=== PATIENT | male | born 1995 | race Caucasian/White ===

== ENCOUNTER 2016-09-09 00:23 | Emergency (ER) | payer OTHER ==
[2016-09-09 00:35] VITALS: BP 162/84; PULSE 95; TEMP 98.1; BMI 27.6
--- NOTE | 2016-09-09 01:36 | PDOC ---
History of Present Illness - General Chief Complaint: Ingrown toenail Stated Complaint: INGROWN TOENAIL Time Seen by Provider: 09/09/16 01:27 History Source: Patient Exam Limitations: No Limitations - History of Present Illness Initial Comments: 09/09/16 01:32 21yo Male patient presents to ED with ingrown toe nail x 1 yr. Patient states that during this time symptoms had gotten better. But the last couple days worsened. Denies any other complaints at this time. Occurred: reports: last week Severity: Yes: moderate Lower Extremity Pain Location: right: 1st toe Method of Injury: No: unknown, assault, burn, direct blow, fell, incised, motor vehicle accident, sports injury, twisted, other Modifying Factors: improves with: None Extremity Pain Location - Extremity Pain Location Extremity Pain Locations: right: 1st toe Past History - Travel Traveled outside of the country in the last 30 days: No Close contact w/someone who was outside of country & ill: No - Past Medical History Allergies/Adverse Reactions: Allergies Allergy/AdvReac Type Severity Reaction Status Date / Time shellfish derived Allergy Verified 09/09/16 00:35 Home Medications: Ambulatory Orders Cephalexin Monohydrate [Keflex -] 500 mg PO BID #20 capsule 09/09/16 Ibuprofen [Motrin -] 600 mg PO Q6H PRN #20 tablet 09/09/16 Asthma: Yes - Psycho/Social/Smoking Cessation Hx Suicidal Ideation: No Smoking History: Unknown if ever smoked Information on smoking cessation initiated: No Hx Alcohol Use: No Drug/Substance Use Hx: No Review of Systems - Review of Systems Able to Perform ROS?: Yes Is the patient limited Andorran proficient: No Constitutional: No: Fever Musculoskeletal: Yes: Other (Rt great toe pain.) All Other Systems: Reviewed and Negative *Physical Exam - Vital Signs Last Vital Signs Temp Pulse Resp BP Pulse Ox 98.1 F 95 H 18 162/84 98 09/09/16 00:32 09/09/16 00:32 09/09/16 00:32 09/09/16 00:32 09/09/16 00:32 - Physical Exam General Appearance: Yes: Nourished, Appropriately Dressed. No: Apparent Distress, Mild Distress, Moderate Distress Respiratory/Chest: positive: Lungs Clear, Normal Breath Sounds. negative: Chest Tender, Respiratory Distress, Accessory Muscle Use, Labored Respiration, Rapid RR Cardiovascular: positive: Regular Rhythm, Regular Rate Musculoskeletal: positive: Normal Inspection. negative: CVA Tenderness, Vertebral Tenderness Extremity: positive: Normal Capillary Refill, Normal Inspection, Normal Range of Motion, Swelling (Rt great toe, active drainage from site. Mild erythema noted.) Integumentary: positive: Normal Color, Dry, Warm Neurologic: positive: practice advisor II-XII NML intact, Fully Oriented, Alert, Normal Mood/ Affect, Normal Response, Motor Strength 5/5 *DC/Admit/Observation/Transfer Diagnosis at time of Disposition: Ingrown left big toenail - Discharge Dispostion Disposition: HOME Condition at time of disposition: Stable Admit: No - Prescriptions Prescriptions: Cephalexin Monohydrate [Keflex -] 500 mg PO BID #20 capsule Ibuprofen [Motrin -] 600 mg PO Q6H PRN #20 tablet PRN Reason: Mild Pain - Referrals Referrals: Charlie Barnhart MD [Primary Care Provider] - Ronnie Pierce [Staff Physician] - - Patient Instructions Printed Discharge Instructions: DI for Ingrown Toenail Removal, DI for Ingrown Toenail Additional Instructions: FOLLOW UP WITH DR. PIERCE (ORCHARD WORKER) THIS WEEK. CALL TO SCHEDULE APPOINTMENT. TAKE MEDICATIONS PRESCRIBED. SOAK AFFECTED FOOT IN WARM WATER TWICE A DAY, DRY THOROUGHLY AND APPLY THIN LAYER OF BACITRACIN OR NEOSPORIN , THEN COVER WITH BANDAGE. AVOID PROLONGED STANDING. DO NOT WEAR TIGHT FITTING SHOES, AND DO NOT TRIM YOU TOE NAILS. Print Language: DANISH - Post Discharge Activity Work/School Note: Back to Work
[2016-09-09] MEDS ORDERED: IBUPROFEN 600 MG TABLET (FP) PO ONE ×2 (01:44→01:53)
[2016-09-09] MEDS ORDERED: CEPHALEXIN MONOHYDRATE 500 MG CAPSULE (UD) PO ONE (01:44)
[2016-09-09] MEDS ORDERED: CEPHALEXIN MONOHYDRATE 250 MG CAPSULE (FP) ONE (01:54)
== END 2016-09-09 02:00 | disposition home or self-care (01) ==
LOC: JER 00:23
DX: L60.0 Ingrowing nail (principal)
CPT/HCPCS: 99281-25

== ENCOUNTER 2016-10-09 20:52 | Emergency (ER) | payer OTHER ==
[2016-10-09 21:12] VITALS: BP 139/80; PULSE 77; TEMP 97.8; BMI 28.6
[2016-10-09] MEDS ORDERED: OXYCODONE/APAP 5/325MG COMBO TABLET PO ONE (23:16)
[2016-10-09] MEDS ORDERED: OXYCODONE/APAP 5/325MG COMBO TABLET ONE (23:53)
[2016-10-09 23:58] LABS: BASOPHIL 0.5 % (0-2.0); EOSINOPHIL 0.6 % (0-4.5); MCH 30.6 pg (25.7-33.7); MCHC 34.1 g/dl (32.0-35.9); MEAN CELL VOLUME 89.8 fl (80-96); NEUTROPHILS 67.4 % (42.8-82.8); PLATELET COUNT 192 K/MM3 (134-434); WHITE BLOOD COUNT 8.2 K/mm3 (4.0-10.0)
[2016-10-10 00:03] LABS: URINE APPEARANCE CLEAR; URINE BILIRUBIN NEGATIVE (NEGATIVE); URINE BLOOD NEGATIVE (NEGATIVE); URINE COLOR YELLOW; URINE GLUCOSE (UA) NEGATIVE (NEGATIVE); URINE KETONE NEGATIVE (NEGATIVE); URINE LEUK ESTERASE NEGATIVE (NEGATIVE); URINE NITRITE NEGATIVE (NEGATIVE); URINE PROTEIN NEGATIVE (NEGATIVE); URINE UROBILINOGEN NEGATIVE E.U./dl (0.2-1.0)
--- NOTE | 2016-10-10 00:15 | PDOC ---
History of Present Illness - General Chief Complaint: Pain, Acute Stated Complaint: PAIN Time Seen by Provider: 10/09/16 22:24 History Source: Patient Exam Limitations: No Limitations - History of Present Illness Travel History: No Initial Comments: 10/09/16 23:57 21yo Male patient presents to ED c/o LLQ abd pain which began today. Patient states while working, he was lifting and moving heavy items. He states every time me moves: Timing/Duration: reports: constant, getting worse Quality: reports: severe Abdominal Pain Onset Location: reports: LLQ Pain Radiation: reports: no radiation Activities at Onset: reports: exertion Treatment Prior to Arrive: improves with: analgesics Aggravating Factors: worse with: None, Defecation, Eating, Emotional upset, Exertion, [place], Movement, Voiding, Change in position Alleviating Factors: worse with: None, Belching, Shallow Breathing, Defecation, Eating, Holding Breath, Passing Gas, Change in Position, Rest, Voiding, Vomiting Past History - Travel Traveled outside of the country in the last 30 days: No Close contact w/someone who was outside of country & ill: No - Past Medical History Allergies/Adverse Reactions: Allergies Allergy/AdvReac Type Severity Reaction Status Date / Time shellfish derived Allergy Verified 10/09/16 21:09 Home Medications: Ambulatory Orders Ibuprofen [Motrin -] 600 mg PO Q6H PRN #30 tablet 10/10/16 Ondansetron [Zofran Odt -] 4 mg SL Q8H PRN #20 od.tablet 10/10/16 Oxycodone HCl/Acetaminophen [Percocet 5-325 mg Tablet] 1 tab PO Q6H PRN #20 tablet MDD 4 tabs 10/10/16 Asthma: Yes - Immunization History Immunization Up to Date: Yes - Psycho/Social/Smoking Cessation Hx Suicidal Ideation: No Smoking History: Never smoked Information on smoking cessation initiated: No Hx Alcohol Use: No Drug/Substance Use Hx: No Abd/GI Specific PMHX - Complaint Specific PMHX Colitis: No Diverticulitis: No Gall Bladder Disease: No GERD: No Hepatitis: No Irritable Bowel Synd (IBS): No Pancreatitis: No GI Ulcer Disease: No Review of Systems - Review of Systems Able to Perform ROS?: Yes Is the patient limited Irish proficient: No Constitutional: No: Chills, Fever Respiratory: No: Cough Cardiac (ROS): No: Chest Pain, Lightheadedness, Palpitations, Syncope, Chest Tightness ABD/GI: Yes: Other (LLQ Abd Pain). No: Abdominal Distended, Blood Streaked Bowels, Constipated, Diarrhea, Difficulty Swallowing, Nausea, Poor Appetite, Poor Fluid Intake, Rectal Bleeding, Vomiting : No: Dysuria, Flank Pain, Hematuria, Pain, Urgency, Testicular Mass, Testicular Swelling Musculoskeletal: No: Back Pain All Other Systems: Reviewed and Negative *Physical Exam - Vital Signs Last Vital Signs Temp Pulse Resp BP Pulse Ox 97.8 F 77 20 139/80 98 10/09/16 21:09 10/09/16 21:09 10/09/16 21:09 10/09/16 21:10/09/16 21:09 - Physical Exam General Appearance: Yes: Nourished, Appropriately Dressed, Mild Distress. No: Apparent Distress, Moderate Distress, Severe Distress Neck: positive: Trachea midline, Normal Thyroid, Supple. negative: Stridor, Lymphadenopathy (R), Lymphadenopathy (L) Respiratory/Chest: positive: Lungs Clear, Normal Breath Sounds. negative: Respiratory Distress, Accessory Muscle Use, Labored Respiration, Rapid RR Cardiovascular: positive: Regular Rhythm, Regular Rate. negative: Edema, JVD, Murmur Gastrointestinal/Abdominal: positive: Normal Bowel Sounds, Soft, Guarding, Rebound, Tenderness (LLQ). negative: Distended Musculoskeletal: positive: Normal Inspection. negative: CVA Tenderness Extremity: positive: Normal Capillary Refill, Normal Inspection, Normal Range of Motion. negative: Swelling, Calf Tenderness Integumentary: positive: Normal Color, Dry, Warm. negative: Rash, Swelling Neurologic: positive: flight operations dispatch clerk II-XII NML intact, Fully Oriented, Alert, Normal Mood/ Affect, Normal Response, Motor Strength 5/5 ED Treatment Course - LABORATORY CBC & Chemistry Diagram: 10/09/16 23:45 10/09/16 23:45 - RADIOLOGY Radiology Studies Ordered: Category Date Time Status ABDOMEN & PELVIS CT W/O CONTR [CT] Stat CT Scan 10/09/16 23:16 Ordered - Medications Given in the ED: ED Medications Discontinued Medications Generic Name Dose Route Start Last Admin Trade Name Freq PRN Reason Stop Dose Admin Oxycodone/Acetaminophen 1 combo 10/09/16 23:16 10/09/16 23:54 Percocet 5/325 - PO 10/09/16 23:17 1 combo ONCE ONE Administration *DC/Admit/Observation/Transfer Diagnosis at time of Disposition: Abdominal pain Qualifiers: Abdominal location: left lower quadrant Qualified Code(s): R10.32 - Left lower quadrant pain - Discharge Dispostion Disposition: HOME Condition at time of disposition: Stable Admit: No - Prescriptions Prescriptions: Ibuprofen [Motrin -] 600 mg PO Q6H PRN #30 tablet PRN Reason: Mild Pain Oxycodone HCl/Acetaminophen [Percocet 5-325 mg Tablet] 1 tab PO Q6H PRN #20 tablet MDD 4 tabs PRN Reason: Severe Pain Ondansetron [Zofran Odt -] 4 mg SL Q8H PRN #20 od.tablet PRN Reason: Nausea - Referrals Referrals: Jason Heredia MD [Staff Physician] - - Patient Instructions Printed Discharge Instructions: DI for Abdominal Pain-Adult Additional Instructions: FOLLOW UP WITH DR. HEREDIA (GASTROENTEROLOGY). CALL TO SCHEDULE EARLY APPOINTMENT. TAKE MEDICATIONS PRESCRIBED. DO NOT DRIVE, DRINK ALCOHOL, OR OPERATE HEAVY MACHINERY WHILE TAKING PERCOCET. USE MOTRIN FOR ANTIINFLAMMATORY PROPERTIES. RETURN IF SYMPTOMS WORSEN OR ANY CONCERNS FOR FURTHER EVALUATION. Print Language: UKRAINIAN - Post Discharge Activity Work/School Note: Back to Work
[2016-10-10 01:04] LABS: ALBUMIN 4.2 g/dl (3.4-5.0); ALK PHOS 76 U/L (45-117); ANION GAP 10 (8-16); BILIRUBIN,TOTAL 0.7 mg/dL (0.2-1.0); CALCIUM 8.9 mg/dL (8.5-10.1); CO2 29 mmol/L (21-32); CREATININE 0.9 mg/dL (0.7-1.3); GLUCOSE,RANDOM 107 mg/dL (74-106); SGOT/AST 16 U/L (15-37); SGPT/ALT 25 U/L (12-78); TOT PROT 7.6 g/dl (6.4-8.2)
[2016-10-10] MEDS ORDERED: KETOROLAC TROMETHAMINE 30 MG/1 ML VIAL IVPUSH ONE (01:54)
[2016-10-10] MEDS ORDERED: OXYCODONE/APAP 5/325MG COMBO TABLET PO ONE (01:54)
[2016-10-10] MEDS ORDERED: ONDANSETRON 8 MG TABLET (FP) PO ONE (02:06)
[2016-10-10] MEDS ORDERED: OXYCODONE/APAP 5/325MG COMBO TABLET ONE (02:11)
== END 2016-10-10 02:13 | disposition home or self-care (01) ==
LOC: JER 20:52
DX: R10.32 Left lower quadrant pain (principal); J45.909 Unspecified asthma, uncomplicated
CPT/HCPCS: 36415; 74176-TC; 80053; 81003; 85025; 99282-25

== ENCOUNTER 2018-05-14 04:31 | Emergency (ER) | payer OTHER ==
[2018-05-14 05:04] VITALS: BP 111/74; PULSE 85; TEMP 97.8; BMI 34.4
--- NOTE | 2018-05-14 05:17 | PDOC ---
History of Present Illness - General Chief Complaint: Eye Problem Stated Complaint: R EYE SWELLING Time Seen by Provider: 05/14/18 05:02 History Source: Patient Exam Limitations: No Limitations - History of Present Illness Initial Comments: 05/14/18 05:12 HISTORY OF PRESENT ILLNESS: This 43-year-old male with past medical history of asthma presents emergency Department with atraumatic swelling to his right lower eyelid. Patient states over the past couple of months, he's had 4-5 styes is concerned that he has recurrent swollen. Denies any fevers, chills, blurry vision, discharge or drainage. No recent travel or sick contacts. PAST MEDICAL HISTORY: Asthma SURGICAL HISTORY: Denies ALLERGIES: shellfish REVIEW OF SYSTEMS General/Constitutional: Denies fever or chills. Denies weakness, weight change. HEENT: Denies change in vision. Denies ear pain or discharge. Denies sore throat. Right eye swelling. Cardiovascular: Denies chest pain or shortness of breath. Respiratory: Denies cough, wheezing, or hemoptysis. Gastrointestinal: Denies nausea, vomiting, diarrhea or constipation. Denies rectal bleeding. Genitourinary: Denies dysuria, frequency, or change in urination. Musculoskeletal: Denies joint or muscle swelling or pain. Denies neck or back pain. Skin and breasts: Denies rash or easy bruising. Neurologic: Denies headache, vertigo, loss of consciousness, or loss of sensation. Psychiatric: Denies depression or anxiety. Endocrine: Denies increased thirst. Denies abnormal weight change. Hematologic/Lymphatic: Denies anemia, easy bleeding, or history of blood clots. Allergic/Immunologic: Denies hives or skin allergy. Denies latex allergy. PHYSICAL EXAM General Appearance: Well-appearing, appropriately dressed. No apparent distress , no intoxication. HEENT: EOMI, PERRLA, normal ENT inspection, normal voice, TMs normal, pharynx normal. No conjunctival pallor. No photophobia, scleral icterus. Erythematous area to the medial aspect of the right lower eyelid. Neck: Supple. Trachea midline. No tenderness, rigidity, carotid bruit, stridor , lymphadenopathy, or thyromegaly. Respiratory/Chest: Lungs CTAB. No shortness of breath, chest tenderness, respiratory distress, accessory muscle use. No crackles, rales, rhonchi, stridor , wheezing, dullness Cardiovascular: RRR. S1, S2. No JVD, murmur, bradycardia, tachycardia. Vascular Pulses: Dorsalis-Pedis (R): 2+, Dorsalis-Pedis (L): 2+ Gastrointestinal/Abdominal: Normal bowel sounds. Abdomen soft, non-distended. No tenderness or rebound tenderness. No organomegaly, pulsatile mass, guarding, hernia, hepatomegaly, splenomegaly. Lymphatic: No adenopathy, tenderness. Musculoskeletal/Extremities: Normal inspection. FROM of all extremities, normal capillary refill. Pelvis Stable. No CVA tenderness. No tenderness to extremities, pedal edema, swelling, erythema or deformity. Integumentary: Appropriate color, dry, warm. No cyanosis, erythema, jaundice or rash Neurologic: instruction dean II-XII intact. Fully oriented, alert. Appropriate mood/affect. Motor strength 5/5. No appreciable EOM palsy, facial droop or sensory deficit. Past History - Past Medical History Allergies/Adverse Reactions: Allergies Allergy/AdvReac Type Severity Reaction Status Date / Time shellfish derived Allergy Verified 05/14/18 05:02 Home Medications: Ambulatory Orders Ibuprofen [Motrin -] 600 mg PO Q6H PRN #30 tablet 10/10/16 Ondansetron [Zofran Odt -] 4 mg SL Q8H PRN #20 od.tablet 10/10/16 Oxycodone HCl/Acetaminophen [Percocet 5-325 mg Tablet] 1 tab PO Q6H PRN #20 tablet MDD 4 tabs 10/10/16 Albuterol Sulfate Inhaler - [Ventolin HFA Inhaler -] 1 - 2 inh PO Q4H #1 inhaler 05/14/18 Asthma: Yes - Immunization History Immunization Up to Date: Yes - Suicide/Smoking/Psychosocial Hx Smoking History: Current some day smoker Number of Cigarettes Smoked Daily: 3 Information on smoking cessation initiated: No Hx Alcohol Use: No Drug/Substance Use Hx: No *Physical Exam - Vital Signs Last Vital Signs Temp Pulse Resp BP Pulse Ox 97.8 F 85 20 111/74 99 05/14/18 05:02 05/14/18 05:02 05/14/18 05:02 05/14/18 05:02 05/14/18 05:02 Medical Decision Making - Medical Decision Making 05/14/18 05:15 A/P: 23-year-old man with hordeleum to the right eye Discharge home with instructions to apply warm compresses. Patient is requesting a refill of his albuterol MDI. I discussed the physical exam findings, ancillary test results and final diagnoses with the patient. I answered all of the patient's questions. The patient was satisfied with the care received and felt comfortable with the discharge plan and treatment plan. The patient will call their primary care physician within 24 hours to arrange follow-up and will return to the Emergency Department with any new, persistent or worsening symptoms. *DC/Admit/Observation/Transfer Diagnosis at time of Disposition: Hordeolum externum (stye) Qualifiers: Laterality: right Eyelid: lower Qualified Code(s): H00.012 - Hordeolum externum right lower eyelid - Discharge Dispostion Disposition: HOME Condition at time of disposition: Stable Decision to Admit order: No - Prescriptions Prescriptions: Albuterol Sulfate Inhaler - [Ventolin HFA Inhaler -] 1 - 2 inh PO Q4H #1 inhaler - Referrals - Patient Instructions Printed Discharge Instructions: DI for Hordeolum - Post Discharge Activity Forms/Work/School Notes: Back to School
== END 2018-05-14 05:49 | disposition home or self-care (01) ==
LOC: JER 04:31
DX: H00.012 Hordeolum externum right lower eyelid (principal); F17.210 Nicotine dependence, cigarettes, uncomplicated; J45.909 Unspecified asthma, uncomplicated
CPT/HCPCS: 99281-25

== ENCOUNTER 2018-09-20 04:27 | Emergency (ER) | payer OTHER ==
[2018-09-20] MEDS ORDERED: MAG HYDROX/AL HYDROX/SIMETH 30 ML UNIT-DOSE CUP PO ONE (04:44)
[2018-09-20] MEDS ORDERED: ONDANSETRON *ODT* 4 MG TABLET SL ONE (04:44)
[2018-09-20] MEDS ORDERED: ONDANSETRON *ODT* 4 MG TABLET ONE (05:04)
[2018-09-20] MEDS ORDERED: MAG HYDROX/AL HYDROX/SIMETH 30 ML UNIT-DOSE CUP ONE (05:04)
[2018-09-20 05:18] VITALS: BP 140/72; PULSE 82; TEMP 97.8; BMI 32.1
--- NOTE | 2018-09-20 06:04 | PDOC ---
History of Present Illness - General Chief Complaint: Pain Stated Complaint: HEADACHE/ABD PAIN Time Seen by Provider: 09/20/18 04:44 - History of Present Illness Initial Comments: 09/20/18 06:04 23-year-old male complaining of nausea vomiting and epigastric abdominal pain after eating pizza last night. Denies fevers/chills movement denies lower abdominal pain, urinary symptoms. patient also reports that he felt and mass to right lower quadrant area with sneezing, this has happened many time before and patient reports that he had to massage the abdomen for swelling to go down. patient has no palpable mass or pain to lower quadrant at this time/. 09/20/18 06:55 Past History - Past Medical History Allergies/Adverse Reactions: Allergies Allergy/AdvReac Type Severity Reaction Status Date / Time shellfish derived Allergy Verified 09/20/18 04:50 Home Medications: Ambulatory Orders Albuterol Sulfate Inhaler - [Ventolin HFA Inhaler -] 1 - 2 inh PO Q4H #1 inhaler 05/14/18 Mag Hydrox/Al Hydrox/Simeth [Mylanta Suspension -] 30 ml PO Q6H PRN #1 bottle Asthma: Yes COPD: No - Immunization History Immunization Up to Date: Yes - Suicide/Smoking/Psychosocial Hx Smoking History: Smoker current status UNK Have you smoked in the past 12 months: No Number of Cigarettes Smoked Daily: 3 Information on smoking cessation initiated: No Hx Alcohol Use: No Drug/Substance Use Hx: No Substance Use Type: None Abd/GI Specific PMHX - Complaint Specific PMHX Colitis: No Diverticulitis: No Gall Bladder Disease: No GERD: No Hepatitis: No Irritable Bowel Synd (IBS): No Pancreatitis: No GI Ulcer Disease: No Review of Systems - Review of Systems Able to Perform ROS?: Yes Is the patient limited Malay proficient: No Constitutional: No: Symptoms Reported, See HPI, Chills, Diaphoresis, Fever, Loss of Appetite, Malaise, Night Sweats, Weakness, Weight Stable, Unintentional Wgt. Loss, Unexplained wgt Loss, Other ABD/GI: Yes: Nausea, Vomiting, Abdominal cramping (epigastric) : No: Symptoms Reported, See HPI, Burning, Dysuria, Discharge, Frequency, Flank Pain, Hematuria, Incontinence, Pain, Urgency, Testicular Mass, Testicular Swelling, Lesions, Testicular Pain, Other Musculoskeletal: No: Symptoms Reported, See HPI, Back Pain, Gout, Joint Pain, Joint Swelling, Muscle Pain, Muscle Weakness, Neck Pain, Joint Stiffness, Other *Physical Exam - Vital Signs Last Vital Signs Temp Pulse Resp BP Pulse Ox 97.8 F 82 16 140/72 98 09/20/18 04:27 09/20/18 04:27 09/20/18 04:27 09/20/18 04:27 09/20/18 04:27 - Physical Exam General Appearance: Yes: Appropriately Dressed Respiratory/Chest: positive: Lungs Clear, Normal Breath Sounds Cardiovascular: positive: Regular Rhythm, Regular Rate Gastrointestinal/Abdominal: positive: Normal Bowel Sounds, Tender (epigastric pain), Soft Extremity: positive: Normal Capillary Refill, Normal Inspection, Normal Range of Motion Integumentary: positive: Normal Color, Dry, Warm Neurologic: positive: Fully Oriented, Alert, Normal Mood/Affect Moderate Sedation - Procedure Monitoring Vital Signs: Procedure Monitoring Vital Signs Temperature 97.8 F 09/20/18 04:27 Pulse Rate 82 09/20/18 04:27 Respiratory Rate 16 09/20/18 04:27 Blood Pressure 140/72 09/20/18 04:27 O2 Sat by Pulse Oximetry (%) 98 09/20/18 04:27 ED Treatment Course - Medications Given in the ED: ED Medications Discontinued Medications Generic Name Dose Route Start Last Admin Trade Name Freq PRN Reason Stop Dose Admin Al Hydroxide/Mg Hydroxide 30 ml 09/20/18 04:44 09/20/18 05:07 Mylanta Oral Suspension - PO 09/20/18 04:45 30 ml ONCE ONE Administration Ondansetron HCl 4 mg 09/20/18 04:44 09/20/18 05:09 Zofran Odt - SL 09/20/18 04:45 4 mg ONCE ONE Administration Progress Note - Progress Note Progress Note: gastroenteritis P: zofran maalox po challenge Medical Decision Making - Medical Decision Making 09/20/18 06:08 tolerated PO water. no vomiting. reports feeling better. no abdominal pain will d/ c home *DC/Admit/Observation/Transfer Diagnosis at time of Disposition: Gastroenteritis - Discharge Dispostion Disposition: HOME Condition at time of disposition: Fair - Prescriptions Prescriptions: Mag Hydrox/Al Hydrox/Simeth [Mylanta Suspension -] 30 ml PO Q6H PRN #1 bottle PRN Reason: Dyspepsia - Referrals Referrals: Yair Ray MD [Staff Physician] - - Patient Instructions Printed Discharge Instructions: DI for Viral Gastroenteritis -- Adult Additional Instructions: Drink plenty of fluids. You may drink Gatorade as well. Start a brat diet (bananas, rice, apples, toast) Follow-up with your doctor as soon as possible. Additional Instructions: * Please call your personal physician to report your Emergency Department visit and to report your progress, if any. * If there is no improvement in symptoms in 2 days call your physician. * Return to the Emergency Department for any worsening symptoms. - Post Discharge Activity Forms/Work/School Notes: Back to Work
== END 2018-09-20 06:30 | disposition home or self-care (01) ==
LOC: JER 04:27
DX: K52.9 Noninfective gastroenteritis and colitis, unspecified (principal)
CPT/HCPCS: 99282-25; Q0162

== ENCOUNTER 2018-10-02 23:31 | Emergency (ER) | payer OTHER ==
[2018-10-02 23:42] VITALS: BP 132/90; PULSE 70; TEMP 97.9; BMI 32.1
--- NOTE | 2018-10-03 01:03 | PDOC ---
History of Present Illness - General Chief Complaint: Pain Stated Complaint: ABD PAIN Time Seen by Provider: 10/03/18 00:18 History Source: Patient - History of Present Illness Initial Comments: 10/03/18 00:55 Patient is a 23 y/o with no medical history who presents with abdominal pain and increased bowel movements. He reports for the last two weeks he has been having abdominal cramping and needing to go to the bathroom right after. Sometimes it is solid stool and sometimes it is diarrhea. He reports that his son has also been using the bathroom frequently. Patient reports he has also been very nauseous and vomiting frequently. He can drink water okay, but when he eats something solid he feels like it sticks in his throat. He reports early satiety. He states even though he has been eating less he feels like he is gaining more weight. Reports he has an appointment with GI but the appointment has not happened yet. No other complaints. Past History - Past Medical History Allergies/Adverse Reactions: Allergies Allergy/AdvReac Type Severity Reaction Status Date / Time shellfish derived Allergy Verified 10/02/18 23:37 Home Medications: Ambulatory Orders Albuterol Sulfate Inhaler - [Ventolin HFA Inhaler -] 1 - 2 inh PO Q4H #1 inhaler 05/14/18 Mag Hydrox/Al Hydrox/Simeth [Mylanta Suspension -] 30 ml PO Q6H PRN #1 bottle Asthma: Yes COPD: No - Immunization History Immunization Up to Date: Yes - Suicide/Smoking/Psychosocial Hx Smoking History: Never smoked Have you smoked in the past 12 months: No Number of Cigarettes Smoked Daily: 3 Information on smoking cessation initiated: No Hx Alcohol Use: No Drug/Substance Use Hx: No Substance Use Type: None Review of Systems - Review of Systems Constitutional: No: Chills, Fever HEENTM: No: Eye Pain Respiratory: No: Cough, Shortness of Breath Cardiac (ROS): No: Chest Pain ABD/GI: Yes: Diarrhea, Difficulty Swallowing, Nausea, Vomiting *Physical Exam - Vital Signs Last Vital Signs Temp Pulse Resp BP Pulse Ox 97.9 F 70 16 132/90 100 10/02/18 23:34 10/02/18 23:34 10/02/18 23:34 10/02/18 23:34 10/02/18 23:34 - Physical Exam Comments: 10/03/18 01:05 GENERAL: A&O x3 Neck: mild fullness around thyroid HEART: RRR, no murmurs, rubs, or gallops LUNGS: CTAL B/L ABD: diffuse tenderness, normoactive bowel sounds GENITAL: no swelling or tenderness on testicles, no inguinal hernias felt SKIN: no rashes or ulcers noted Moderate Sedation - Procedure Monitoring Vital Signs: Procedure Monitoring Vital Signs Temperature 97.9 F 10/02/18 23:34 Pulse Rate 70 10/02/18 23:34 Respiratory Rate 16 10/02/18 23:34 Blood Pressure 132/90 10/02/18 23:34 O2 Sat by Pulse Oximetry (%) 100 10/02/18 23:34 ED Treatment Course - LABORATORY CBC & Chemistry Diagram: 10/03/18 01:09 10/03/18 01:09 - RADIOLOGY Radiology Studies Ordered: Category Date Time Status ABDOMEN & PELVIS CT WITH CONTR [CT] Stat CT Scan 10/03/18 00:53 Ordered Medical Decision Making - Medical Decision Making 10/03/18 01:58 f/u CT abd, f/u labs *DC/Admit/Observation/Transfer Diagnosis at time of Disposition: Abdominal pain - Referrals - Patient Instructions - Post Discharge Activity
[2018-10-03 01:41] LABS: HEMATOCRIT 46.6 % (35.4-49); HEMOGLOBIN 16.4 GM/dL (11.7-16.9); MCH 31.9 pg (25.7-33.7); MCHC 35.2 g/dl (32.0-35.9); MEAN CELL VOLUME 90.8 fl (80-96); MEAN PLT VOLUME 9.8 fl (7.5-11.1); PLATELET COUNT 243 K/MM3 (134-434); RBC 5.13 M/mm3 (4.00-5.60); RDW 12.3 % (11.9-15.9); WHITE BLOOD COUNT 8.2 K/mm3 (4.0-10.0)
[2018-10-03 02:09] LABS: ALBUMIN 4.1 g/dl (3.4-5.0); ALK PHOS 112 U/L (45-117); ANION GAP 5 MMOL/L (8-16); BILIRUBIN,TOTAL 0.6 mg/dL (0.2-1); BLOOD UREA NITROGEN 15 mg/dL (7-18); CALCIUM 9.3 mg/dL (8.5-10.1); CHLORIDE 107 mmol/L (98-107); CO2 29 mmol/L (21-32); CREATININE 0.9 mg/dL (0.55-1.3); GLUCOSE,RANDOM 101 mg/dL (74-106); POTASSIUM 4.6 mmol/L (3.5-5.1); SGOT/AST 30 U/L (15-37); SGPT/ALT 35 U/L (13-61); SODIUM 141 mmol/L (136-145); TOT PROT 7.7 g/dl (6.4-8.2)
[2018-10-03] MEDS ORDERED: ACETAMINOPHEN 1000 MG/100 ML VIAL (NON FORMULARY) IVPB ONE (02:18)
--- NOTE | 2018-10-03 02:19 | PDOC ---
*Physical Exam - Vital Signs Last Vital Signs Temp Pulse Resp BP Pulse Ox 97.9 F 70 16 132/90 100 10/02/18 23:34 10/02/18 23:34 10/02/18 23:34 10/02/18 23:34 10/02/18 23:34 - Physical Exam Comments: 10/03/18 16:29 23 yo M with no past medical history presents to the emergency department with increasing abdominal cramping with change in bowel habits. Per the patient, he has had changing of bowel patterns of intermittent diarrhea and constipation. His pain is diffusely located throughout the abdomen. The patient was signed out to me by Dr. Tyson. At the time of sign out, the patient's labs were within normal limits with a pending abdomen pelvis CT. ED Treatment Course - LABORATORY CBC & Chemistry Diagram: 10/03/18 01:09 10/03/18 01:09 - ADDITIONAL ORDERS Additional order review: Laboratory Results 10/03/18 01:09 Sodium 141 Potassium 4.6 Chloride 107 Carbon Dioxide 29 Anion Gap 5 L BUN 15 Creatinine 0.9 Creat Clearance w eGFR 104.57 Random Glucose 101 Calcium 9.3 Total Bilirubin 0.6 AST 30 ALT 35 Alkaline Phosphatase 112 Total Protein 7.7 Albumin 4.1 TSH 1.81 10/03/18 01:09 RBC 5.13 MCV 90.8 MCHC 35.2 RDW 12.3 MPV 9.8 Medical Decision Making - Medical Decision Making 10/03/18 16:33 CT abdomen and pelvis was within normal limits without acute intra-abdominal pathologies. The patient was given a copy of his report. He was given 1 gram of tylenol for pain relief. the patient was given a referral to a joint supervisor for follow up care. He understands the need for follow up and agrees to it. Patient at the time of discharge was well appearing and pain free. He was able to ambulate on his own volition. Dispo: Discharge *DC/Admit/Observation/Transfer Diagnosis at time of Disposition: Abdominal pain Qualifiers: Abdominal location: unspecified location Qualified Code(s): R10.9 - Unspecified abdominal pain - Discharge Dispostion Disposition: HOME Decision to Admit order: No - Referrals Referrals: [facility] [place] [facility] [place] [Provider Group] Jared Davis DO [Staff Physician] - - Patient Instructions Printed Discharge Instructions: DI for Viral Gastroenteritis -- Adult, DI for Irritable Bowel Syndrome Additional Instructions: you were seen in the emergency department for your abdominal cramping. your imaging was negative and your labs were within normal limits. please follow up with your primary medical doctor in 1 week for follow up care and management. in addition, a joint supervisor was referred to you. please follow up with them in 1 week after discharge. please return to the emergency department if you have worsening symptoms or new concerning symptoms such as fevers, chills, blood in the stool, intractable vomiting. thank you. - Post Discharge Activity Forms/Work/School Notes: Back to Work
[2018-10-03] MEDS ORDERED: ACETAMINOPHEN INJECTION 100 ML IVPB ONE (02:22)
[2018-10-03] MEDS ORDERED: ONDANSETRON 4 MG/2 ML VIAL ONE (02:31)
--- NOTE | 2018-10-03 02:32 | PDOC ---
Attending Attestation - Resident Resident Name: Kelsy Tyson - ED Attending Attestation I have performed the following: I have examined & evaluated the patient, The case was reviewed & discussed with the resident, I agree w/resident's findings & plan, Exceptions are as noted - HPI HPI: 10/03/18 02:21 23 M with no PMH presents to ED with intermittent abdominal pain x 2 weeks. Pt endorses frequent urge to defecate but denies diarrhea. Denies bloody or dark stools. Pt also endorses nausea with occasional episodes of vomiting after eating. Deneis F/C. Denies any recent abx use. Denies CP/SOB. Denies dysuria. Denies any abdominal surgeries. Denies scrotal pain. Denies dysuria or flank pain. - Physicial Exam PE: 10/03/18 02:32 GENERAL: Awake, alert, and fully oriented, in no acute distress. HEAD: No signs of trauma EYES: PERRLA, EOMI, sclera anicteric, conjunctiva clear ENT: Auricles normal inspection, hearing grossly normal, nares patent, oropharynx clear without exudates. Moist mucosa NECK: Nontender, no stepoffs, Normal ROM, supple, no lymphadenopathy, JVD, or masses LUNGS: Breath sounds equal, clear to auscultation bilaterally. No wheezes, and no crackles HEART: Regular rate and rhythm, normal S1 and S2, no murmurs, rubs or gallops ABDOMEN: + diffuse lower abdominal tenderness, normoactive bowel sounds. No guarding, no rebound. No masses EXTREMITIES: Normal range of motion, no edema. No clubbing or cyanosis. No cords, erythema, or tenderness NEUROLOGICAL: Cranial nerves II through XII intact. 5/5 strength and sensation in all extremities, Normal speech, normal gait, normal cerebellar function SKIN: Warm, Dry, normal turgor, no rashes or lesions noted. : Normal scrotum, no tenderness, no masses, normal cremasteric reflex - Medical Decision Making 10/03/18 02:32 23 M with 2 weeks of intermittent lower abdominal pain with frequent bowel movements. ?IBS. Will r/o colitis vs appy with CT scan. No evidence of testicular torsion or other scrotal pathology on exam. - Labs - CTAP 10/03/18 03:[address] unremarkable Pt is well appearing, with normal vitals. Clinically stable for DC at this time. I discussed the physical exam findings, ancillary test results and final diagnoses with the patient. I answered all of the patient's questions. The patient was satisfied with the care received and felt comfortable with the discharge plan and treatment plan. The patient agrees to follow up with the primary care physician within 24-72 hours.
== END 2018-10-03 03:36 | disposition home or self-care (01) ==
LOC: JER 23:31
PROC: 3E033NZ Introduction of Analgesics, Hypnotics, Sedatives into Peripheral Vein, Percutaneous Approach (ICD-10-PCS; principal; 2018-10-02)
DX: R10.9 Unspecified abdominal pain (principal)
CPT/HCPCS: 36415; 74177-TC; 80053; 84443; 85027; 96374; 99282-25; J0131

== ENCOUNTER 2022-06-08 19:24 | Emergency (ER) | payer OTHER ==
[2022-06-08 19:39] VITALS: BP 119/72; PULSE 90; RESP 20; TEMP 98.1; BMI 25.0
[2022-06-08] MEDS ORDERED: IBUPROFEN 400 MG TABLET (FP) PO ONE ×2 (23:18→23:32)
[2022-06-08 23:32] LABS: URINE APPEARANCE CLEAR; URINE BILIRUBIN NEGATIVE (NEGATIVE); URINE COLOR DK YELLOW; URINE GLUCOSE (UA) NEGATIVE (NEGATIVE); URINE KETONE 2+ (NEGATIVE); URINE LEUK ESTERASE NEGATIVE (NEGATIVE); URINE NITRITE NEGATIVE (NEGATIVE); URINE PROTEIN TRACE (NEGATIVE)
== END 2022-06-08 23:52 | disposition home or self-care (01) ==
LOC: JER 19:24
DX: F32.A Depression, unspecified (principal); S30.812A Abrasion of penis, initial encounter
CPT/HCPCS: 36415; 81003; 87086; 87491; 87591; 99283-25

== ENCOUNTER 2022-10-06 03:26 | Emergency (ER) | payer OTHER ==
[2022-10-06 03:32] VITALS: BP 133/77; PULSE 85; RESP 18; TEMP 98.3; BMI 25.0
[2022-10-06 04:17] LABS: URINE APPEARANCE CLEAR; URINE BILIRUBIN NEGATIVE (NEGATIVE); URINE COLOR YELLOW; URINE GLUCOSE (UA) NEGATIVE (NEGATIVE); URINE KETONE TRACE (NEGATIVE); URINE LEUK ESTERASE NEGATIVE (NEGATIVE); URINE NITRITE NEGATIVE (NEGATIVE); URINE PROTEIN NEGATIVE (NEGATIVE)
== END 2022-10-06 06:33 | disposition home or self-care (01) ==
LOC: JER 03:26
DX: Z11.3 Encounter for screening for infections with a predominantly sexual mode of transmission (principal)
CPT/HCPCS: 36415; 81003; 87086; 87491; 87591; 99283-25

== ENCOUNTER 2024-08-04 15:12 | Emergency (ER) | payer OTHER ==
[2024-08-04 15:51] VITALS: BP 114/70; PULSE 71; RESP 20; TEMP 98.3; BMI 23.5
[2024-08-04 16:34] LABS: EPI CELLS 4 /uL (0-25.1); HYALINE CASTS 1 /uL (0-3.1); URINE APPEARANCE CLEAR; URINE BACTERIA 1 /uL (0-1359); URINE BILIRUBIN 1+ (NEGATIVE); URINE COLOR DK YELLOW; URINE GLUCOSE (UA) NEGATIVE (NEGATIVE); URINE KETONE 1+ (NEGATIVE); URINE LEUK ESTERASE NEGATIVE (NEGATIVE); URINE NITRITE NEGATIVE (NEGATIVE); URINE PROTEIN 1+ (NEGATIVE); URINE RBC 15 /uL (0-23.9); URINE WBC 17 /uL (0-25.8)
[2024-08-04 18:23] LABS: HIV INTERPRETATION NEGATIVE (NEGATIVE)
== END 2024-08-04 17:25 | disposition home or self-care (01) ==
LOC: JERFT 15:12
DX: R05.1 Acute cough (principal); R63.8 Other symptoms and signs concerning food and fluid intake; R30.0 Dysuria
CPT/HCPCS: 36415; 81003; 86803; 87086; 87389; 99283-25